=== PATIENT | male | born 1965 | race Two or more races ===

== ENCOUNTER 2017-07-11 17:00 | Emergency (ER) | payer OTHER ==
[2017-07-11] MEDS: DIPHTH/TET/ACEL PERTUSS (ADULT) 0.5 ML VIAL IM* (19:26)
[2017-07-11] MEDS: HYDROCODONE/APAP (5/325) TAB PO (19:26)
[2017-07-11] MEDS: LIDOCAINE 1%/EPI 30 ML INJ INJ (19:26)
== END 2017-07-11 22:44 | disposition home or self-care (01) ==
LOC: FTE 17:00
DX: S51.812A Laceration without foreign body of left forearm, initial encounter (principal); S51.832A Puncture wound without foreign body of left forearm, initial encounter; W26.8XXA Contact with other sharp object(s), not elsewhere classified, initial encounter; Y92.9 Unspecified place or not applicable; Z23 Encounter for immunization
CPT/HCPCS: 12002; 73090; 90471; 90715; 99283-25

== ENCOUNTER 2017-07-13 10:10 | Emergency (ER) | payer OTHER | END 2017-07-13 10:56 | disposition home or self-care (01) | LOC: E/R 10:10 | DX: Z48.01 Encounter for change or removal of surgical wound dressing (principal) | CPT/HCPCS: 99281; Z7502 ==

== ENCOUNTER 2017-07-20 13:23 | Emergency (ER) | payer OTHER | END 2017-07-20 13:55 | disposition home or self-care (01) | LOC: E/R 13:55 → FTE 13:23 | DX: Z48.02 Encounter for removal of sutures (principal) | CPT/HCPCS: 99281; Z7502 ==